=== PATIENT | male | born 1985 ===

== ENCOUNTER 2021-08-27 12:53 | Inpatient (IN) ==
[2021-08-27 15:01] LABS: Basophils % 0.3 % (0.0-0.8); Eosinophils # 0.1 10*3/uL (0.0-0.87); Eosinophils % 0.8 % (0.00-10.9); Hematocrit 24.1 VOL% (42.0-52.0); Hemoglobin 7.8 GM/DL (14.0-18.0); Immature Granulocytes % 2.4 %; Immature Granulocytes Absolute 0.24 #; Lymphocytes # 1.7 10*3/uL (1.4-4.0); Lymphocytes % 16.6 % (21.2-54.2); Mean Corpuscular HGB Conc 32.4 GM/DL (32-36); Mean Corpuscular Volume 99.6 FL (87-102); Mean Platelet Volume 11.2 FL (9.6-12.0); Neutrophils % 72.9 % (38.7-73.9); Platelet Count 176 T/CUMM (130-400); Red Blood Count 2.42 MC/CUMM (3.8-5.5); White Blood Count 10.1 T/CUMM (4-12)
[2021-08-27] MEDS ORDERED: GLUCAGON 1 MG VIAL IM PRN (15:55)
[2021-08-27] MEDS ORDERED: DEXTROSE 50% 25 GM/50 ML SYRINGE IV PRN (15:55)
[2021-08-27] MEDS ORDERED: DEXTROSE 50% 25 GM/50 ML VIAL IV STA (16:00)
[2021-08-27] MEDS ORDERED: DEXTROSE 50% 25 GM/50 ML SYRINGE IV ONE (16:00)
[2021-08-27 16:02] LABS: Alanine Aminotransferase 16 U/L (16-61); Alkaline Phosphatase 87 U/L (45-117); Aspartate Amino Transferase 8 U/L (0-37)
[2021-08-27 16:03] LABS: Albumin 2.3 G/DL (3.4-5.0); Blood Urea Nitrogen 91 MG/DL (7-18); Carbon Dioxide 9 MMOL/L (21-32); Estimated Glom Filtration Rate 22 ML/MIN; Glucose 69 MG/DL (74-106); Potassium 4.8 MMOL/L (3.5-5.1); Sodium 143 MMOL/L (136-145); Total Protein 6.4 G/DL (6.4-8.2)
[2021-08-27 16:06] LABS: Calcium < 5.0 MG/DL (8.5-10.1)
[2021-08-27] MEDS ORDERED: hydrALAZINE 20 MG/1 ML VIAL IV PRN (16:10)
[2021-08-27] MEDS ORDERED: DOCUSATE SODIUM 100 MG CAPSULE PO PRN (16:10)
[2021-08-27] MEDS ORDERED: SIMETHICONE CHEW 125 MG TABLET PO PRN (16:10)
[2021-08-27] MEDS ORDERED: MAGNESIUM SULF RIDER 2 GM/50 ML PREMIX IV ONE (16:11)
[2021-08-27] MEDS ORDERED: CALCIUM GLUCONATE 2,000 MG in SODIUM CHLORIDE 0.9% 100 ML IV ONE (16:14)
[2021-08-27] MEDS ORDERED: SODIUM BICARBONATE 50 MEQ/50 ML VIAL IV ONE (16:15)
[2021-08-27] MEDS: INSULIN LISPRO 100 UNIT/ML SUBCUT SCH ×2 (16:52→21:22)
[2021-08-27] MEDS: hydrALAZINE 20 MG/1 ML VIAL IV PRN (17:00)
[2021-08-27] MEDS: HEPARIN 5,000 UNIT/1 ML VIAL SUBCUT SCH (19:23)
[2021-08-27] MEDS: SODIUM BICARBONATE 650 MG TABLET PO SCH (21:21)
[2021-08-28] MEDS: HEPARIN 5,000 UNIT/1 ML VIAL SUBCUT SCH ×2 (05:40→17:44)
[2021-08-28 06:20] LABS: Basophils % 0.4 % (0.0-0.8); Eosinophils # 0.1 10*3/uL (0.0-0.87); Eosinophils % 0.5 % (0.00-10.9); Hematocrit 22.7 VOL% (42.0-52.0); Hemoglobin 7.5 GM/DL (14.0-18.0); Immature Granulocytes % 1.6 %; Immature Granulocytes Absolute 0.17 #; Lymphocytes % 9.3 % (21.2-54.2); Mean Corpuscular Volume 97.8 FL (87-102); Monocytes % 6.5 % (1.7-12.7); Neutrophils % 81.7 % (38.7-73.9); Platelet Count 159 T/CUMM (130-400); Red Blood Count 2.32 MC/CUMM (3.8-5.5); Red Cell Distribution Width 14.7 % (9.3-17.3); White Blood Count 10.8 T/CUMM (4-12)
[2021-08-28 06:49] LABS: % Iron Saturation 21.2 % (18-50); Ferritin 176.3 ng/mL (26-388)
[2021-08-28 06:59] LABS: Albumin 2.1 G/DL (3.4-5.0); Bilirubin,Total 0.5 MG/DL (0.20-1.00); Osmolality,Calculated 304.4 MOS/KG (273-304); Risk Ratio 2.16
[2021-08-28 07:02] LABS: Calcium 5.1 MG/DL (8.5-10.1)
[2021-08-28] MEDS ORDERED: MAGNESIUM SULF RIDER 2 GM/50 ML PREMIX IV ONE (08:00)
[2021-08-28] MEDS ORDERED: CALCIUM GLUCONATE 2,000 MG in SODIUM CHLORIDE 0.9% 100 ML IV ONE (08:30)
[2021-08-28] MEDS: FERROUS SULFATE 325 MG TABLET PO SCH ×2 (09:05→17:44)
[2021-08-28] MEDS: INSULIN LISPRO 100 UNIT/ML SUBCUT SCH ×4 (09:05→22:00)
[2021-08-28] MEDS: SODIUM BICARBONATE 650 MG TABLET PO SCH ×3 (09:05→21:59)
[2021-08-28] MEDS: NICOTINE 21 MG/24 HR PATCH TRANSDERM SCH (09:05)
[2021-08-28] MEDS ORDERED: fentaNYL 100 MCG/2 ML VIAL ONE (10:30)
[2021-08-28] MEDS ORDERED: propofoL 200 MG/20 ML VIAL IV ONE (10:30)
[2021-08-28] MEDS ORDERED: LIDOCAINE 2% 5 ML VIAL ONE (10:30)
[2021-08-28] MEDS ORDERED: MIDAZOLAM 2 MG/2 ML VIAL ONE (10:30)
[2021-08-28] MEDS ORDERED: BUPIVACAINE MPF 0.25% 30 ML VIAL ONE (10:31)
[2021-08-28] MEDS ORDERED: LIDOCAINE 1%/EPI INJ 20 ML VIAL ONE (10:31)
[2021-08-28 10:39] LABS: Hepatitis B Core IgM Quant 0.11 Index; Hepatitis B Surface Ag Quant < 0.10 Index; Hepatitis B Surface Ag Result Non-Reactive (NonReactive); Hepatitis C Virus Ab Quant 0.03 Index; Hepatitis C Virus Ab Result Non-Reactive (NonReactive)
[2021-08-28] MEDS ORDERED: KETAMINE 500 MG/10 ML VIAL ONE (11:10)
[2021-08-28] MEDS ORDERED: SODIUM CHLORIDE 0.9% 250 ML IV SCH (11:30)
[2021-08-28] MEDS ORDERED: HEPARIN 10,000 UNIT/10 ML VIAL IV SCH (15:30)
[2021-08-28] MEDS: hydrALAZINE 20 MG/1 ML VIAL IV PRN (18:20)
[2021-08-29 04:25] LABS: Basophils % 0.4 % (0.0-0.8); Eosinophils # 0.1 10*3/uL (0.0-0.87); Eosinophils % 0.8 % (0.00-10.9); Hematocrit 22.3 VOL% (42.0-52.0); Hemoglobin 7.5 GM/DL (14.0-18.0); Immature Granulocytes % 1.1 %; Immature Granulocytes Absolute 0.11 #; Lymphocytes # 1.2 10*3/uL (1.4-4.0); Mean Corpuscular HGB Conc 33.6 GM/DL (32-36); Mean Corpuscular Volume 95.7 FL (87-102); Mean Platelet Volume 11.4 FL (9.6-12.0); Monocytes % 8.1 % (1.7-12.7); Neutrophils % 77.6 % (38.7-73.9); Platelet Count 179 T/CUMM (130-400); Red Blood Count 2.33 MC/CUMM (3.8-5.5); Red Cell Distribution Width 14.2 % (9.3-17.3); White Blood Count 10.3 T/CUMM (4-12)
[2021-08-29 05:01] LABS: Calcium 5.8 MG/DL (8.5-10.1)
[2021-08-29] MEDS: HEPARIN 5,000 UNIT/1 ML VIAL SUBCUT SCH (06:02)
[2021-08-29] MEDS: INSULIN LISPRO 100 UNIT/ML SUBCUT SCH ×3 (07:27→18:10)
[2021-08-29] MEDS: SODIUM BICARBONATE 650 MG TABLET PO SCH ×2 (08:49→18:10)
[2021-08-29] MEDS: FERROUS SULFATE 325 MG TABLET PO SCH ×2 (08:49→18:11)
[2021-08-29] MEDS: NICOTINE 21 MG/24 HR PATCH TRANSDERM SCH (10:13)
[2021-08-29] MEDS: hydrALAZINE 20 MG/1 ML VIAL IV PRN (13:55)
[2021-08-29] MEDS ORDERED: ACETAMINOPHEN 325 MG TABLET PO PRN (15:06)
[2021-08-29 16:21] VITALS: BP 181/77
== END 2021-08-29 18:12 | disposition left against medical advice (07) | DRG 673 ==
LOC: EDUNIT# → EDBD → N.ED 12:53 → SUATTDRO 15:55 → N.EDINP 15:55 → N.3E 08-28 00:27
PROVIDERS: ADMIT Internal Medicine; ATTEND Internal Medicine

== ENCOUNTER 2022-03-29 00:09 | Observation (INO) ==
[2022-03-29] MEDS ORDERED: hydrALAZINE 20 MG/1 ML VIAL IV PRN (04:18)
[2022-03-29] MEDS ORDERED: ACETAMINOPHEN 325 MG TABLET PO PRN (04:18)
[2022-03-29] MEDS ORDERED: ONDANSETRON 4 MG/2 ML VIAL IV PRN (04:18)
[2022-03-29] MEDS ORDERED: DEXTROSE 10% 250 ML BAG IV PRN (04:18)
[2022-03-29] MEDS ORDERED: GLUCAGON 1 MG VIAL IM PRN (04:18)
[2022-03-29] MEDS ORDERED: MORPHINE 2 MG/1 ML SYRINGE IV PRN (04:18)
[2022-03-29 05:55] LABS: Basophils # 0.1 10*3/uL (0.0-0.2); Basophils % 0.5 % (0.0-0.8); Eosinophils # 0.2 10*3/uL (0.0-0.87); Eosinophils % 1.8 % (0.00-10.9); Hemoglobin 10.4 GM/DL (14.0-18.0); Immature Granulocytes % 0.5 %; Immature Granulocytes Absolute 0.05 #; Lymphocytes # 1.4 10*3/uL (1.4-4.0); Mean Corpuscular HGB Conc 33.5 GM/DL (32-36); Mean Corpuscular Volume 92.3 FL (87-102); Mean Platelet Volume 10.4 FL (9.6-12.0); Monocytes # 0.7 10*3/uL (0.11-0.8); Monocytes % 7.4 % (1.7-12.7); Neutrophils % 74.8 % (38.7-73.9); Platelet Count 177 T/CUMM (130-400); Red Blood Count 3.36 MC/CUMM (3.8-5.5); Red Cell Distribution Width 14.4 % (9.3-17.3); White Blood Count 9.4 T/CUMM (4-12)
[2022-03-29] MEDS ORDERED: amLODIPine 10 MG TABLET PO ONE (06:00)
[2022-03-29 06:34] LABS: Albumin 2.7 G/DL (3.4-5.0); Bilirubin,Total 0.5 MG/DL (0.20-1.00); Calcium 6.1 MG/DL (8.5-10.1); Osmolality,Calculated 304.8 MOS/KG (273-304); Potassium 4.7 MMOL/L (3.5-5.1); Total Protein 7.1 G/DL (6.4-8.2)
[2022-03-29] MEDS: carvediloL 6.25 MG TABLET PO SCH (10:16)
[2022-03-29] MEDS: lisinopriL 20 MG TABLET PO SCH (10:16)
[2022-03-29] MEDS: PANTOPRAZOLE 40 MG TABLET PO SCH (10:17)
[2022-03-29] MEDS: INSULIN LISPRO 100 UNIT/ML SUBCUT SCH ×4 (10:46→21:23)
[2022-03-29] MEDS ORDERED: amLODIPine 10 MG TABLET PO SCH (21:00)
[2022-03-30 05:21] LABS: Basophils # 0.1 10*3/uL (0.0-0.2); Basophils % 0.7 % (0.0-0.8); Eosinophils # 0.2 10*3/uL (0.0-0.87); Eosinophils % 1.9 % (0.00-10.9); Hematocrit 32.2 VOL% (42.0-52.0); Hemoglobin 10.8 GM/DL (14.0-18.0); Immature Granulocytes % 0.5 %; Immature Granulocytes Absolute 0.04 #; Lymphocytes # 1.4 10*3/uL (1.4-4.0); Lymphocytes % 16.8 % (21.2-54.2); Mean Corpuscular HGB Conc 33.5 GM/DL (32-36); Mean Corpuscular Volume 93.1 FL (87-102); Mean Platelet Volume 10.6 FL (9.6-12.0); Monocytes # 0.5 10*3/uL (0.11-0.8); Monocytes % 6.1 % (1.7-12.7); Platelet Count 208 T/CUMM (130-400); Red Blood Count 3.46 MC/CUMM (3.8-5.5); Red Cell Distribution Width 14.1 % (9.3-17.3); White Blood Count 8.3 T/CUMM (4-12)
[2022-03-30 05:48] LABS: Calcium 6.2 MG/DL (8.5-10.1); Osmolality,Calculated 299.4 MOS/KG (273-304); Potassium 5.1 MMOL/L (3.5-5.1)
[2022-03-30] MEDS: INSULIN LISPRO 100 UNIT/ML SUBCUT SCH ×2 (08:12→12:58)
[2022-03-30] MEDS: PANTOPRAZOLE 40 MG TABLET PO SCH (08:51)
[2022-03-30] MEDS: carvediloL 6.25 MG TABLET PO SCH (08:51)
[2022-03-30] MEDS: lisinopriL 20 MG TABLET PO SCH (08:51)
[2022-03-30 12:58] VITALS: BP 144/83
== END 2022-03-30 13:27 | disposition home or self-care (01) ==
LOC: N.TELES → SUATTDRO 03:30
PROVIDERS: ADMIT Internal Medicine; ATTEND Internal Medicine

== ENCOUNTER 2022-10-19 18:26 | Inpatient (IN) ==
[2022-10-19] MEDS ORDERED: hydrALAZINE 20 MG/1 ML VIAL IV STA (20:03)
[2022-10-19] MEDS ORDERED: MORPHINE 2 MG/1 ML SYRINGE IV STA (20:03)
[2022-10-19] MEDS ORDERED: ONDANSETRON 4 MG/2 ML VIAL IV ONE (20:03)
[2022-10-19 20:10] LABS: Basophils % 0.5 % (0.0-0.8); Eosinophils # 0.1 10*3/uL (0.0-0.87); Eosinophils % 0.8 % (0.00-10.9); Hematocrit 33.3 VOL% (42.0-52.0); Hemoglobin 10.7 GM/DL (14.0-18.0); Immature Granulocytes % 0.3 %; Immature Granulocytes Absolute 0.02 #; Lymphocytes % 16.6 % (21.2-54.2); Mean Corpuscular HGB Conc 32.1 GM/DL (32-36); Mean Corpuscular Volume 97.7 FL (87-102); Monocytes # 0.3 10*3/uL (0.11-0.8); Monocytes % 4.7 % (1.7-12.7); Neutrophils % 77.1 % (38.7-73.9); Platelet Count 209 T/CUMM (130-400); Red Blood Count 3.41 MC/CUMM (3.8-5.5); Red Cell Distribution Width 13.8 % (9.3-17.3); White Blood Count 6.2 T/CUMM (4-12)
[2022-10-19 20:30] LABS: Albumin 3.2 G/DL (3.4-5.0); Bilirubin,Total 0.6 MG/DL (0.20-1.00); Calcium 8.3 MG/DL (8.5-10.1); Osmolality,Calculated 289.8 MOS/KG (273-304); Potassium 4.9 MMOL/L (3.5-5.1); Total Protein 7.7 G/DL (6.4-8.2)
[2022-10-19] MEDS ORDERED: DEXTROSE 50% 25 GM/50 ML VIAL IV STA (22:05)
[2022-10-19] MEDS ORDERED: NICOTINE 21 MG/24 HR PATCH TRANSDERM PRN (22:05)
[2022-10-19] MEDS ORDERED: diphenhydrAMINE CAP 25 MG CAPSULE PO PRN (22:05)
[2022-10-19] MEDS ORDERED: ACETAMINOPHEN 325 MG TABLET PO PRN (22:05)
[2022-10-19] MEDS ORDERED: ZALEPLON 5 MG CAPSULE PO PRN (22:05)
[2022-10-19] MEDS ORDERED: guaiFENesin/DM ER 600-30 MG TABLET PO PRN (22:05)
[2022-10-19] MEDS ORDERED: DEXTROSE 50% 25 GM/50 ML SYRINGE IV STA (22:06)
[2022-10-19] MEDS ORDERED: VANCOMYCIN INJ 1,500 MG in SODIUM CHLORIDE 0.9% 500 ML IV STA (22:35)
[2022-10-19] MEDS: MORPHINE 2 MG/1 ML SYRINGE IV PRN (22:40)
[2022-10-19] MEDS: CLINDAMYCIN INJ 600 MG/50 ML PREMIX IV SCH (23:35)
[2022-10-20] MEDS: INSULIN LISPRO 100 UNIT/ML SUBCUT SCH ×3 (00:17→13:10)
[2022-10-20] MEDS ORDERED: VANCOMYCIN INJ 1,500 MG in SODIUM CHLORIDE 0.9% 500 ML IV ONE (00:30)
[2022-10-20] MEDS: hydrALAZINE 20 MG/1 ML VIAL IV PRN (03:11)
[2022-10-20] MEDS: MORPHINE 2 MG/1 ML SYRINGE IV PRN ×2 (03:40→08:00)
[2022-10-20] MEDS: DEXTROSE 50% 25 GM/50 ML SYRINGE IV PRN ×2 (03:45→06:45)
[2022-10-20] MEDS ORDERED: DEXTROSE 10% 250 ML BAG IV PRN (03:45)
[2022-10-20 03:52] LABS: Basophils % 0.8 % (0.0-0.8); Eosinophils # 0.1 10*3/uL (0.0-0.87); Eosinophils % 1.9 % (0.00-10.9); Hematocrit 33.5 VOL% (42.0-52.0); Hemoglobin 10.7 GM/DL (14.0-18.0); Immature Granulocytes % 0.4 %; Immature Granulocytes Absolute 0.02 #; Lymphocytes # 1.1 10*3/uL (1.4-4.0); Lymphocytes % 20.9 % (21.2-54.2); Mean Corpuscular HGB Conc 31.9 GM/DL (32-36); Mean Corpuscular Volume 98.5 FL (87-102); Mean Platelet Volume 10.4 FL (9.6-12.0); Monocytes # 0.4 10*3/uL (0.11-0.8); Monocytes % 6.8 % (1.7-12.7); Neutrophils % 69.2 % (38.7-73.9); Platelet Count 212 T/CUMM (130-400); Red Cell Distribution Width 13.7 % (9.3-17.3); White Blood Count 5.3 T/CUMM (4-12)
[2022-10-20 05:30] LABS: Calcium 8.5 MG/DL (8.5-10.1); Osmolality,Calculated 286.1 MOS/KG (273-304); Potassium 4.6 MMOL/L (3.5-5.1)
[2022-10-20] MEDS: CLINDAMYCIN INJ 600 MG/50 ML PREMIX IV SCH ×2 (07:55→17:34)
[2022-10-20] MEDS: carvediloL 25 MG TABLET PO SCH ×2 (09:00→20:38)
[2022-10-20] MEDS: PANTOPRAZOLE 40 MG TABLET PO SCH (09:00)
[2022-10-20] MEDS ORDERED: HYDROmorphone 1 MG/1 ML SYRINGE IV PRN ×2 (09:15→12:03)
[2022-10-20] MEDS: DEXTROSE 5% NACL 0.9% 1,000 ML IV SCH (09:15)
[2022-10-20] MEDS ORDERED: propofoL 200 MG/20 ML VIAL IV ONE (11:18)
[2022-10-20] MEDS ORDERED: SEVOFLURANE 1 UNIT/15 MINUTE INH ONE (11:18)
[2022-10-20] MEDS ORDERED: LIDOCAINE 2% 5 ML VIAL ONE (11:18)
[2022-10-20] MEDS ORDERED: MIDAZOLAM 2 MG/2 ML VIAL ONE (11:19)
[2022-10-20] MEDS ORDERED: fentaNYL 100 MCG/2 ML VIAL ONE (11:19)
[2022-10-20] MEDS ORDERED: SODIUM CHLORIDE 0.9% 250 ML IV SCH (11:30)
[2022-10-20] MEDS ORDERED: MEPERIDINE 25 MG/1 ML VIAL IV PRN (12:03)
[2022-10-20] MEDS ORDERED: PROMETHAZINE INJ 25 MG in SODIUM CHLORIDE 0.9% 50 ML IV PRN (12:03)
[2022-10-20] MEDS ORDERED: ONDANSETRON 4 MG/2 ML VIAL IV PRN (12:03)
[2022-10-20] MEDS ORDERED: diphenhydrAMINE 50 MG/1 ML VIAL IV PRN (12:03)
[2022-10-20] MEDS ORDERED: VANCOMYCIN INJ 2,500 MG in SODIUM CHLORIDE 0.9% 500 ML IV ONE (17:00)
[2022-10-20] MEDS: amLODIPine 10 MG TABLET PO SCH (20:38)
[2022-10-20] MEDS: SEVELAMER CARBONATE 800 MG TABLET PO SCH (20:38)
[2022-10-20] MEDS: HYDROmorphone 1 MG/1 ML SYRINGE IV PRN (20:41)
[2022-10-21] MEDS: HYDROmorphone 1 MG/1 ML SYRINGE IV PRN ×4 (01:06→20:04)
[2022-10-21] MEDS: CLINDAMYCIN INJ 600 MG/50 ML PREMIX IV SCH ×3 (01:48→16:41)
[2022-10-21] MEDS: DEXTROSE 5% NACL 0.9% 1,000 ML IV SCH (04:15)
[2022-10-21 05:43] LABS: Basophils % 0.8 % (0.0-0.8); Eosinophils # 0.1 10*3/uL (0.0-0.87); Eosinophils % 1.5 % (0.00-10.9); Hematocrit 33.3 VOL% (42.0-52.0); Hemoglobin 10.6 GM/DL (14.0-18.0); Immature Granulocytes % 0.4 %; Immature Granulocytes Absolute 0.02 #; Lymphocytes # 0.7 10*3/uL (1.4-4.0); Lymphocytes % 12.8 % (21.2-54.2); Mean Corpuscular HGB Conc 31.8 GM/DL (32-36); Mean Platelet Volume 10.5 FL (9.6-12.0); Monocytes # 0.4 10*3/uL (0.11-0.8); Monocytes % 6.9 % (1.7-12.7); Neutrophils % 77.6 % (38.7-73.9); Platelet Count 216 T/CUMM (130-400); Red Blood Count 3.33 MC/CUMM (3.8-5.5); Red Cell Distribution Width 13.6 % (9.3-17.3); White Blood Count 5.2 T/CUMM (4-12)
[2022-10-21 06:15] LABS: Calcium 8.7 MG/DL (8.5-10.1); Osmolality,Calculated 277.4 MOS/KG (273-304); Potassium 5.2 MMOL/L (3.5-5.1)
[2022-10-21] MEDS: PANTOPRAZOLE 40 MG TABLET PO SCH (08:41)
[2022-10-21] MEDS: ASPIRIN EC 81 MG TABLET PO SCH (08:41)
[2022-10-21] MEDS: carvediloL 25 MG TABLET PO SCH ×2 (08:41→20:06)
[2022-10-21] MEDS: SEVELAMER CARBONATE 800 MG TABLET PO SCH ×3 (08:42→20:06)
[2022-10-21] MEDS: ATORVASTATIN 80 MG TABLET PO SCH (08:42)
[2022-10-21] MEDS: ONDANSETRON 4 MG/2 ML VIAL IV PRN (16:34)
[2022-10-21] MEDS: hydrALAZINE 20 MG/1 ML VIAL IV PRN (17:38)
[2022-10-21] MEDS: amLODIPine 10 MG TABLET PO SCH (20:06)
[2022-10-21] MEDS ORDERED: IRON (CARBONYL)/VIT C/B12/FA TABLET PO SCH (21:00)
[2022-10-22] MEDS: HYDROmorphone 1 MG/1 ML SYRINGE IV PRN ×3 (00:30→09:05)
[2022-10-22] MEDS: CLINDAMYCIN INJ 600 MG/50 ML PREMIX IV SCH ×2 (00:33→08:54)
[2022-10-22 04:54] LABS: Basophils % 0.6 % (0.0-0.8); Eosinophils # 0.1 10*3/uL (0.0-0.87); Eosinophils % 2.2 % (0.00-10.9); Hematocrit 31.4 VOL% (42.0-52.0); Hemoglobin 10.2 GM/DL (14.0-18.0); Immature Granulocytes % 0.6 %; Immature Granulocytes Absolute 0.03 #; Lymphocytes # 0.8 10*3/uL (1.4-4.0); Lymphocytes % 15.5 % (21.2-54.2); Mean Corpuscular HGB Conc 32.5 GM/DL (32-36); Mean Corpuscular Volume 98.7 FL (87-102); Mean Platelet Volume 10.3 FL (9.6-12.0); Monocytes # 0.5 10*3/uL (0.11-0.8); Monocytes % 8.4 % (1.7-12.7); Neutrophils % 72.7 % (38.7-73.9); Platelet Count 232 T/CUMM (130-400); Red Blood Count 3.18 MC/CUMM (3.8-5.5); Red Cell Distribution Width 13.8 % (9.3-17.3); White Blood Count 5.3 T/CUMM (4-12)
[2022-10-22 05:17] LABS: Calcium 8.3 MG/DL (8.5-10.1); Osmolality,Calculated 272.8 MOS/KG (273-304); Potassium 5.1 MMOL/L (3.5-5.1)
[2022-10-22] MEDS: ATORVASTATIN 80 MG TABLET PO SCH (08:52)
[2022-10-22] MEDS: carvediloL 25 MG TABLET PO SCH (08:52)
[2022-10-22] MEDS: ASPIRIN EC 81 MG TABLET PO SCH (08:52)
[2022-10-22] MEDS: PANTOPRAZOLE 40 MG TABLET PO SCH (08:52)
[2022-10-22] MEDS: SEVELAMER CARBONATE 800 MG TABLET PO SCH (08:53)
[2022-10-22] MEDS: ONDANSETRON 4 MG/2 ML VIAL IV PRN (09:06)
[2022-10-22 12:10] VITALS: BP 141/71
[2022-10-26] MEDS ORDERED: ERGOCALCIFEROL 50,000 UNIT CAPSULE PO SCH (09:00)
== END 2022-10-22 11:51 | disposition home or self-care (01) | DRG 255 ==
LOC: EDUNIT# → EDBD → N.ED 18:26 → N.EDINP 22:05 → N.2E 10-20 09:12
PROVIDERS: ADMIT Internal Medicine; ATTEND Internal Medicine